=== PATIENT | female | born 1935 | race Caucasian/White ===

== ENCOUNTER 2022-12-05 19:30 | Inpatient (IN) ==
[2022-12-05] MEDS ORDERED: ONDANSETRON INJ 2 MG/ML 2 ML VIAL IV STA (19:42)
[2022-12-05] MEDS ORDERED: SODIUM CHLORIDE 0.9% 1000ML 1,000 ML IV ONE (20:39)
--- NOTE | 2022-12-05 20:41 | Emergency Department Note ---
Impression & Plan Abdominal pain, Acute hyponatremia, Acute pancreatitis ED Provider Note NAME: KRISTAN HAWTHORNE AGE: 87 SEX: F : 1935 ARRIVES VIA: Walk-In INFORMANT: Patient ED PROVIDER(S): Denver Chacon DO CHIEF COMPLAINT: Nausea and vomiting HPI: Patient is an 87-year-old female who presents to the ER for nausea and vomiting. She had 1 loose bowel movement today. Daughter notes she has been having nausea and vomiting since October. Recently waxing and waning and got better when it started back up this Friday. Once again got better on Friday or Friday and then picked back up again today. She denies any headache or change in vision. No chest pain or shortness of breath. No dysuria, urgency, or frequency. No other exacerbating or remitting factors. PAST MEDICAL HISTORY:See Below PAST SURGICAL HISTORY:See Below FAMILY HISTORY:See Below SOCIAL HISTORY:See Below HOME MEDICATIONS:See Below ALLERGIES:See Below VITALS:See Below PHYSICAL EXAMINATION: GENERAL: Sitting up in bed, alert, well appearing, well nourished, no distress, non-toxic EYE EXAM: normal conjunctiva. PERRL and EOM's grossly intact. OROPHARYNX: no exudate, no erythema, lips, buccal mucosa, and tongue normal and mucous membranes are moist NECK: supple, no nuchal rigidity, no adenopathy, non-tender LUNGS: Clear to auscultation. Normal chest wall mechanics HEART: no murmurs, S1 normal and S2 normal ABDOMEN: abdomen soft, non-tender, normo-active bowel sounds, no masses, no rebound or guarding. UPPER EXTREMITIES: upper extremities are grossly normal. LOWER EXTREMITIES: No pitting edema. NEURO EXAM: Normal sensorium, cranial nerves II-XII grossly intact, normal speech, no gross weakness of arms, no gross weakness of legs. MEDICAL DECISION MAKING: Patient is an 87-year-old female who presents ER for the listed complaint. IV was established blood work was obtained. External records reviewed. Labs show no significant leukocytosis or anemia. BMP with mild hyponatremia at 126. T. bili at 1.1. LFTs were unremarkable. Troponin negative. Lipase 260. UA was unremarkable. CT abdomen pelvis showed colitis. Patient was given IV fluids. She was updated bedside. Discussed with the hospitalist for further evaluation management treatment. Triage Nursing notes reviewed. Limited review of prior medical records performed Vital Signs: reviewed and remarkable for HTN Differential diagnosis: Differential diagnoses includes but is not limited to gastritis, peptic ulcer disease, GERD, gallbladder disease, pancreatitis, small bowel obstruction, appendicitis, diverticulitis, hernia, urinary tract infection, torsion, perforation, trauma, infectious. ER treatment provided: See below Diagnostics interpreted by me include EKG and cardiac monitoring as listed below: -Cardiac Monitoring: An order was placed for continuous cardiac monitoring. The monitor shows a rate of 80 with sinus rhythm. -ECG: Sinus rhythm rate 75 Left axis No PVCs QTc 439 -Laboratory studies:Interpreted by me as stated above in MDM and shown below. Imaging studies: Xrays: As interpreted by me:none CTs show: CT abdomen pelvis shows no obvious obstruction per my read CT abdomen pelvis per radiology was unremarkable Consultation(s): As described in MDM Procedures:none Critical Care: None Past Med/Surg History Social History Smoking Status: Never smoker Preferred Language: Polish Feels Safe at Home: Yes Allergies Allergies Allergy/AdvReac Type Severity Reaction Status Date / Time Penicillins Allergy Unknown Verified 12/05/22 22:29 Home Meds Home Medications Medication Instructions Recorded Confirmed alendronate 70 mg tablet 70 mg PO WK 12/05/22 12/05/22 aspirin 81 mg tablet,delayed 81 mg PO QAM 12/05/22 12/05/22 release calcium carbonate 600 mg-vitamin 1 tab PO QAM 12/05/22 12/05/22 D3 20 mcg (800 unit) tablet (Caltrate with Vitamin D3) cholecalciferol (vitamin D3) 50 50 mcg PO QAM 12/05/22 12/05/22 mcg (2,000 unit) tablet (Vitamin D3) donepezil 5 mg tablet 5 mg PO QDB 12/05/22 12/05/22 [id number]-[id number]-[id number] ac 400 1 tab PO QAM 12/05/22 12/05/22 mcg-calcium carb 500 mg-vit K1 20 mcg tablet rosuvastatin 10 mg tablet 10 mg PO QAM 12/05/22 12/05/22 triamterene 37.5 1 cap PO QAM 12/05/22 12/05/22 mg-hydrochlorothiazide 25 mg capsule Results & Data (ED) Vital Signs Vital Signs - 24 hr 12/05/22 19:38 12/05/22 21:00 12/05/22 21:41 Temperature 36.8 C Temperature Source Temporal Artery Scan Pulse Rate 93 H Pulse Rate [Apical] 66 71 Respiratory Rate 18 18 16 Respiratory Effort / Characteristics Non-Labored Non-Labored Spontaneous Respiratory Depth Normal Normal Blood Pressure 166/85 H Blood Pressure [Left Arm] 175/92 H 171/80 H Blood Pressure Mean 112 Blood Pressure Mean [Left Arm] 119 110 Pulse Oximetry 98 96 96 Oxygen Delivery Method Room Air Nasal Cannula Room Air Sepsis Recent Fever Within 48 Hours No Sepsis New/Unexplained Change in Mental Status No Sepsis Action Taken by Nursing No Action Required 12/05/22 21:45 Temperature Temperature Source Pulse Rate 66 Pulse Rate [Apical] Respiratory Rate Respiratory Effort / Characteristics Respiratory Depth Blood Pressure Blood Pressure [Left Arm] Blood Pressure Mean Blood Pressure Mean [Left Arm] Pulse Oximetry Oxygen Delivery Method Sepsis Recent Fever Within 48 Hours Sepsis New/Unexplained Change in Mental Status Sepsis Action Taken by Nursing Laboratory Data 12/05/22 19:56 12/05/22 19:56 Lab Results 12/05/22 12/05/22 12/05/22 Range/Units 19:56 19:56 22:26 WBC 9.41 (4.8-10.8) K/ul RBC 5.31 (4.20-5.40) M/uL Hgb 15.9 (12.0-16.0) g/dl Hct 44.6 (37.0-47.0) % MCV 84.0 (80.0-100.0) fL MCH 29.9 (25.0-34.0) pg MCHC 35.7 (32.0-36.0) g/dL RDW Std Deviation 39.0 (36.4-46.3) fL RDW Coeff of Darlyn 12.7 (11.5-14.5) % Plt Count 201 (130-400) K/uL MPV 9.2 L (9.4-12.4) fL Immature Gran % (Auto) 0.3 % Neut % (Auto) 58.1 % Lymph % (Auto) 34.2 % [place] % (Auto) 6.9 % Eos % (Auto) 0.4 % Baso % (Auto) 0.1 % Neut # (Auto) 5.46 (1.40-6.50) K/uL Lymph # (Auto) 3.22 (1.2-3.4) K/uL [place] # (Auto) 0.65 H (0.11-0.59) K/uL Eos # (Auto) 0.04 (0-0.50) K/uL Baso # (Auto) 0.01 (0-0.2) K/uL Immature Gran # (Auto) 0.03 (0.01-0.20) K/uL Sodium 126 L (136-145) mmol/L Potassium 3.6 (3.5-5.1) mmol/L Chloride 87 L (98-107) mmol/L Carbon Dioxide 27 (21-32) mmol/L Anion Gap 12 H (3-11) BUN 15 (6-23) mg/dl Creatinine 0.86 (0.6-1.2) mg/dl Est Cr Clr Drug Dosing 30.2 ml/min Est GFR ( Amer) 70.9 ml/min Est GFR (Non-Af Amer) 61.2 ml/min BUN/Creatinine Ratio 17.4 (10-20) Glucose 111 H (70-99(Fasting)) mg/dl Calcium 10.5 H (8.6-10.3) mg/dl Total Bilirubin 1.1 H (0.2-1.0) mg/dl AST 36 (13-39) U/L ALT 17 (7-52) U/L Alkaline Phosphatase 93 (34-104) U/L Troponin I High Sens 9.3 (0-14) pg/ml Total Protein 8.0 (6.0-8.3) gm/dl Albumin 4.9 (3.4-5.0) gm/dl Globulin 3.1 (2.5-4.0) gm/dl Albumin/Globulin Ratio 1.6 (0.9-2) Lipase 259 H (11-82) U/L Urine Color Yellow Urine Appearance Clear (Clear) Urine pH 7.5 (4.5-7.5) Ur Specific [place] 1.022 (1.000-1.030) Urine Protein Negative (Negative) Urine Glucose (UA) Negative (Negative) Urine Ketones Negative (Negative) Urine Blood Negative (Negative) Urine Nitrite Negative (Negative) Urine Bilirubin Negative (Negative) Urine Urobilinogen Negative (Negative) Ur Leukocyte Esterase 1+ H (Negative) Urine WBC (Auto) 1-5 (0-5) /hpf Urine RBC (Auto) 0-4 (0-4) /hpf U Hyaline Cast (Auto) 0 (0-5) /lpf U Epithel Cells (Auto) 0-5 (0-5) /lpf Urine Bacteria (Auto) Negative (Negative) Administered Medications Discontinued Medications Sodium Chloride (Nss 1000ml) 1,000 mls @ 999 mls/hr IV .Q1H1M ONE Stop: 12/05/22 21:39 Last Infusion: 12/05/22 21:56 Dose: 0 mls/hr Documented By: Admin: 12/05/22 20:48 Dose: 999 mls/hr Documented By: JOSIE Ioversol (Optiray 320 100ml) 90 ml IV ONCE ONE Stop: 12/05/22 21:27 Last Admin: 12/05/22 21:26 Dose: 90 ml Documented By: KWADWO Ondansetron HCl (Ondansetron Inj 2 Mg/Ml 2 Ml Vial) 4 mg IV NOW STA Stop: 12/05/22 19:43 Last Admin: 12/05/22 20:00 Dose: 4 mg Documented By: GENE Imaging Data Radiologist's Impression: Abdomen/Pelvis CT 12/05/22 20:39 Exam(s): CT ABDOMEN + PELVIS With Contrast IV Amt: 90ml EXAM: CT Abdomen and Pelvis With Intravenous Contrast CLINICAL HISTORY: Reason for exam: abd pain. TECHNIQUE: Axial computed tomography images of the abdomen and pelvis with intravenous contrast. CTDI is 6.74 mGy and DLP is 285.15 mGy-cm. Automated exposure control was utilized for the study. A dose lowering technique was utilized adhering to the principles of ALARA. CONTRAST: Patient received 90ml of IV contrast COMPARISON: Comparison made to prior CT scan of the abdomen and pelvis from December 01, 2022. FINDINGS: Lung bases: Unremarkable. No mass. No consolidation. ABDOMEN: Liver: Unremarkable. No mass. Gallbladder and bile ducts: Decompressed. Small calculi. No ductal dilation. Pancreas: Unremarkable. No mass. No ductal dilation. Spleen: Splenomegaly. Adrenals: Unremarkable. No mass. Kidneys and ureters: Left nephrolithiasis. No solid mass. No hydronephrosis. Stomach and bowel: There is thickening and edema of the distal esophageal and gastric wall. Surgical samuel in the right lower quadrant adjacent to the cecum. There is thickening and edema within the descending colon wall. PELVIS: Appendix: No findings to suggest acute appendicitis. Bladder: Unremarkable. No mass. Reproductive: Status post hysterectomy. ABDOMEN and PELVIS: Intraperitoneal space: Unremarkable. No free air. No significant fluid collection. Bones/joints: No acute fracture. No dislocation. Soft tissues: Unremarkable. Vasculature: Unremarkable. No abdominal aortic aneurysm. Lymph nodes: Unremarkable. No enlarged lymph nodes. IMPRESSION: Findings concerning for colitis of the descending colon, which may be infectious or inflammatory etiologies. Findings concerning for esophagitis and gastritis. Left nephrolithiasis. Splenomegaly. Cholelithiasis without evidence of cholecystitis. Status post hysterectomy. Electronically signed by: Radha Gonzalez MD 12/05/22 22:57 PM Discharge Plan Visit Data Chief Complaint: Dehydration Stated Complaint: NAUSEA, VOMIT, DEHYDRATING ED Provider: Denver Chacon Discharge Problem: Abdominal pain, Acute hyponatremia, Acute pancreatitis Forms Stand Alone Forms: [facility] [employer] Prescriptions Prescriptions: No Action donepezil 5 mg tablet 5 mg PO QDB alendronate 70 mg tablet 70 mg PO WK Rx Instructions: friday triamterene-hydrochlorothiazid 37.5-25 mg capsule 1 cap PO QAM rosuvastatin 10 mg tablet 10 mg PO QAM aspirin [Aspirin Low-Strength] 81 mg Tablet,Delayed Release (Dr/Ec) 81 mg PO QAM cholecalciferol (vitamin D3) [Vitamin D3] 50 mcg (2,000 unit) Tablet 50 mcg PO QAM One-A-Day Women's 50 Plus 400 mcg-500 mg calcium-20 mcg Tablet 1 tab PO QAM calcium carbonate-vitamin D3 [Caltrate with Vitamin D3] 600 mg-20 mcg (800 unit) Tablet 1 tab PO QAM Referrals Referrals: Maximino Andrade DO [Primary Care Provider] -
[2022-12-05 20:42] LABS: Basophils # (auto) 0.01 K/uL (0-0.2); Basophils % (auto) 0.1 %; Eosinophils # (auto) 0.04 K/uL (0-0.50); Eosinophils % (auto) 0.4 %; Hematocrit (blood only) 44.6 % (37.0-47.0); Hemoglobin 15.9 g/dl (12.0-16.0); Immature Granulocytes # (auto) 0.03 K/uL (0.01-0.20); Immature Granulocytes % (auto) 0.3 %; Lymphocytes # (auto) 3.22 K/uL (1.2-3.4); Lymphocytes % (auto) 34.2 %; Mean Corpuscular Hemoglobin 29.9 pg (25.0-34.0); Mean Corpuscular Hgb Conc 35.7 g/dL (32.0-36.0); Mean Platelet Volume 9.2 fL (9.4-12.4); Monocytes # (auto) 0.65 K/uL (0.11-0.59); Monocytes % (auto) 6.9 %; Neutrophils # (auto) 5.46 K/uL (1.40-6.50); Neutrophils % (auto) 58.1 %; Platelet Count 201 K/uL (130-400); RDW Coefficient of Variation 12.7 % (11.5-14.5); Red Blood Count 5.31 M/uL (4.20-5.40); White Blood Count 9.41 K/ul (4.8-10.8)
[2022-12-05 21:04] LABS: Albumin Globulin Ratio 1.6 (0.9-2); Albumin Level 4.9 gm/dl (3.4-5.0); BUN Creatinine Ratio 17.4 (10-20); Bilirubin,Total 1.1 mg/dl (0.2-1.0); Calcium 10.5 mg/dl (8.6-10.3); Creatinine Clr Calc Pharmacy 30.2 ml/min; Est GFR (African American) 70.9 ml/min; Est GFR (Non-African American) 61.2 ml/min; Globulin 3.1 gm/dl (2.5-4.0); Potassium 3.6 mmol/L (3.5-5.1)
[2022-12-05 21:10] LABS: Troponin I High Sensitivity 9.3 pg/ml (0-14)
[2022-12-05] MEDS ORDERED: OPTIRAY 320 100ml IV ONE (21:26)
[2022-12-05 22:45] LABS: Appearance Urine Clear (Clear); Bilirubin Urine Negative (Negative); Blood Urine Negative (Negative); Color Urine Yellow; Glucose Urine UA Negative (Negative); Ketones Urine Negative (Negative); Leukocyte Esterase Urine 1+ (Negative); Nitrite Urine Negative (Negative); Protein Urine Negative (Negative); Specific Gravity Urine 1.022 (1.000-1.030); Urobilinogen Urine Negative (Negative); pH Urine 7.5 (4.5-7.5)
[2022-12-05 22:55] LABS: Bacteria Urine Automated Negative (Negative); Cast Urine Automated 0 /lpf (0-5); Epithelial Cell Urine Auto 0-5 /lpf (0-5); RBC Urine Automated 0-4 /hpf (0-4)
--- NOTE | 2022-12-05 23:00 | History & Physical Report ---
Date of Service December 05, 2022 Assessment & Plan (1) Nausea & vomiting: Plan: 87-year-old female with past medical history significant for prediabetes, hyperlipidemia, hypertension, vitamin D deficiency, osteoporosis, benign paroxysmal vertigo, chronic midline low back pain, memory loss, who lives at home alone ambulates without support able to eat regular food and daughter lives close by was brought in by daughter because of ongoing nausea vomiting and weakness. Nausea an vomiting ongoing for some time now Diarrhea today Mild abdominal discomfort CT scan showing mild colitis and also gastritis and esophagitis Stool cultures ordered by ER we will follow the results IV fluids Keep n.p.o. for now IV Pepcid twice daily Empiric IV cipro and flagyl for now Consult GI in a.m. for further recommendation Hyponatremia Mostly from poor p.o. intake Getting fluids We will closely follow the labs and BMP every 6 hours We will avoid rapid correction We will follow urine osmolality serum was met in urine sodium levels If not progressing as intended we will consult nephrology Prediabetes We will follow HbA1c levels Hypertension We will hold the triamterene hydrochlorothiazide because of hyponatremia and poor oral intake IV hydralazine as needed for now Hyperlipidemia On statin Mild Hypercalcemia possibly from dehydration held calcium supplements will follow vitamin d levels. follow repeat labs DVT prophylaxis heparin subcu Disposition med/telemetry Full code (2) Hyponatremia: History of Present Illness Chief Complaint: Nausea and vomiting and diarrhea and weakness Primary Care Provider: Maximino Andrade DO 87-year-old female with past medical history significant for prediabetes, hy perlipidemia, hypertension, vitamin D deficiency, osteoporosis, benign paroxysmal vertigo, chronic midline low back pain, memory loss, who lives at home alone ambulates without support able to eat regular food and daughter lives close by was brought in by daughter because of ongoing nausea vomiting and weakness. Daughter states end of October she had stomach bug and had about 1 and half weeks of nausea vomiting and poor appetite and weakness and abdominal discomfort. Then her symptoms improved. But last Friday again she had nausea vomiting and not feeling well and she was in the ER, labs seemed okay except for mild hyponatremia. At that time CT scan was done which showed mild colitis possible infectious versus inflammatory. She improved with IV fluids and was discharged home. Daughter says she did fine for few days but again last 2 days again developed severe nausea and vomiting and vomited all the food she ate in last 2 days. Mild abdominal discomfort. She also had a explosive diarrhea today. Denies any blood in the vomitus or blood in the stools. No fevers. Hemodynamically stable. Denies any chest pain or shortness of breath. No headaches. Mild dizziness. No blurred visions or earache or runny nose or sore throat. No dysphagia or odynophagia. Normal bladder movements. No back pain. No neck pain. Currently ambulation not that great because of weakness. Past medical history as mentioned above Past surgical history appendectomy with hysterectomy, freeing of bowel ideations, tonsillectomy and adenoidectomy. Social history no smoking. Currently lives alone. Daughter lives close by Family history no family history on file Allergies Allergy/AdvReac Type Severity Reaction Status Date / Time Penicillins Allergy Unknown Verified 12/05/22 22:29 Home Medications Medication Instructions Recorded Confirmed Type alendronate 70 mg tablet 70 mg PO WK 12/05/22 12/05/22 History aspirin 81 mg tablet,delayed 81 mg PO QAM 12/05/22 12/05/22 History release calcium carbonate 600 mg-vitamin 1 tab PO QAM 12/05/22 12/05/22 History D3 20 mcg (800 unit) tablet (Caltrate with Vitamin D3) cholecalciferol (vitamin D3) 50 50 mcg PO QAM 12/05/22 12/05/22 History mcg (2,000 unit) tablet (Vitamin D3) donepezil 5 mg tablet 5 mg PO QDB 12/05/22 12/05/22 History [id number]-cie-[id number] ac 400 1 tab PO QAM 12/05/22 12/05/22 History mcg-calcium carb 500 mg-vit K1 20 mcg tablet rosuvastatin 10 mg tablet 10 mg PO QAM 12/05/22 12/05/22 History triamterene 37.5 1 cap PO QAM 12/05/22 12/05/22 History mg-hydrochlorothiazide 25 mg capsule Past Med/Surg History Social History Smoking Status: Never smoker Preferred Language: Latvian Feels Safe at Home: Yes Review of Systems Review of Systems: All systems reviewed & are unremarkable except as noted in Subjective Physical Exam Physical Exam: General- not in distress Head- atraumatic Eyes- PERRL. ENT- oropharynx clear Neck- supple, no JVD, Lungs- clear to auscultation no wheezing or crackles. Heart- regular rhythm; no murmur, no gallop. Abdomen- normal bowel sounds, soft, nontender, no distension Extremities- no pretibial edema, no erythema seen. Neuro- alert, oriented x 3; PERRL, no facial palsy; no dysarthria; obeys commands, moves extremities. Skin- warm & dry Results & Data Results & Data Vital Signs (Past 12 Hours) Vital Signs Temp Pulse Pulse Resp BP BP Pulse Ox 12/05/22 21:41 71 16 171/80 H 96 12/05/22 21:00 66 18 175/92 H 96 12/05/22 19:38 36.8 C 93 H 18 166/85 H 98 O2 Del Method 12/05/22 21:41 Room Air 12/05/22 21:00 Nasal Cannula 12/05/22 19:38 Room Air Diagnostic Findings Laboratory Results WBC 9.41 K/ul (4.8-10.8) 12/05/22 19:56 RBC 5.31 M/uL (4.20-5.40) 12/05/22 19:56 Hgb 15.9 g/dl (12.0-16.0) 12/05/22 19:56 Hct 44.6 % (37.0-47.0) 12/05/22 19:56 MCV 84.0 fL (80.0-100.0) 12/05/22 19:56 MCH 29.9 pg (25.0-34.0) 12/05/22 19:56 MCHC 35.7 g/dL (32.0-36.0) 12/05/22 19:56 RDW Std Deviation 39.0 fL (36.4-46.3) 12/05/22 19:56 RDW Coeff of Darlyn 12.7 % (11.5-14.5) 12/05/22 19:56 Plt Count 201 K/uL (130-400) 12/05/22 19:56 MPV 9.2 fL (9.4-12.4) L 12/05/22 19:56 Immature Gran % (Auto) 0.3 % 12/05/22 19:56 Neut % (Auto) 58.1 % 12/05/22 19:56 Lymph % (Auto) 34.2 % 12/05/22 19:56 [place] % (Auto) 6.9 % 12/05/22 19:56 Eos % (Auto) 0.4 % 12/05/22 19:56 Baso % (Auto) 0.1 % 12/05/22 19:56 Neut # (Auto) 5.46 K/uL (1.40-6.50) 12/05/22 19:56 Lymph # (Auto) 3.22 K/uL (1.2-3.4) 12/05/22 19:56 [place] # (Auto) 0.65 K/uL (0.11-0.59) H 12/05/22 19:56 Eos # (Auto) 0.04 K/uL (0-0.50) 12/05/22 19:56 Baso # (Auto) 0.01 K/uL (0-0.2) 12/05/22 19:56 Immature Gran # (Auto) 0.03 K/uL (0.01-0.20) 12/05/22 19:56 Sodium 126 mmol/L (136-145) L 12/05/22 19:56 Potassium 3.6 mmol/L (3.5-5.1) 12/05/22 19:56 Chloride 87 mmol/L (98-107) L 12/05/22 19:56 Carbon Dioxide 27 mmol/L (21-32) 12/05/22 19:56 Anion Gap 12 (3-11) H 12/05/22 19:56 BUN 15 mg/dl (6-23) 12/05/22 19:56 Creatinine 0.86 mg/dl (0.6-1.2) 12/05/22 19:56 Est Cr Clr Drug Dosing 30.2 ml/min 12/05/22 19:56 Est GFR ( Amer) 70.9 ml/min 12/05/22 19:56 Est GFR (Non-Af Amer) 61.2 ml/min 12/05/22 19:56 BUN/Creatinine Ratio 17.4 (10-20) 12/05/22 19:56 Glucose 111 mg/dl (70-99(Fasting)) H 12/05/22 19:56 Calcium 10.5 mg/dl (8.6-10.3) H 12/05/22 19:56 Total Bilirubin 1.1 mg/dl (0.2-1.0) H 12/05/22 19:56 AST 36 U/L (13-39) 12/05/22 19:56 ALT 17 U/L (7-52) 12/05/22 19:56 Alkaline Phosphatase 93 U/L (34-104) 12/05/22 19:56 Troponin I High Sens 9.3 pg/ml (0-14) 12/05/22 19:56 Total Protein 8.0 gm/dl (6.0-8.3) 12/05/22 19:56 Albumin 4.9 gm/dl (3.4-5.0) 12/05/22 19:56 Globulin 3.1 gm/dl (2.5-4.0) 12/05/22 19:56 Albumin/Globulin Ratio 1.6 (0.9-2) 12/05/22 19:56 Lipase 259 U/L (11-82) H 12/05/22 19:56 Urine Color Yellow 12/05/22 22:26 Urine Appearance Clear (Clear) 12/05/22 22:26 Urine pH 7.5 (4.5-7.5) 12/05/22 22:26 Ur Specific [place] 1.022 (1.000-1.030) 12/05/22 22:26 Urine Protein Negative (Negative) 12/05/22 22:26 Urine Glucose (UA) Negative (Negative) 12/05/22 22:26 Urine Ketones Negative (Negative) 12/05/22 22:26 Urine Blood Negative (Negative) 12/05/22 22:26 Urine Nitrite Negative (Negative) 12/05/22 22:26 Urine Bilirubin Negative (Negative) 12/05/22 22:26 Urine Urobilinogen Negative (Negative) 12/05/22 22:26 Ur Leukocyte Esterase 1+ (Negative) H 12/05/22 22:26 Urine WBC (Auto) 1-5 /hpf (0-5) 12/05/22 22:26 Urine RBC (Auto) 0-4 /hpf (0-4) 12/05/22 22:26 U Hyaline Cast (Auto) 0 /lpf (0-5) 12/05/22 22:26 U Epithel Cells (Auto) 0-5 /lpf (0-5) 12/05/22 22:26 Urine Bacteria (Auto) Negative (Negative) 12/05/22 22:26 Impressions Abdomen/Pelvis CT 12/05/22 20:39 Exam(s): CT ABDOMEN + PELVIS With Contrast IV Amt: 90ml EXAM: CT Abdomen and Pelvis With Intravenous Contrast CLINICAL HISTORY: Reason for exam: abd pain. TECHNIQUE: Axial computed tomography images of the abdomen and pelvis with intravenous contrast. CTDI is 6.74 mGy and DLP is 285.15 mGy-cm. Automated exposure control was utilized for the study. A dose lowering technique was utilized adhering to the principles of ALARA. CONTRAST: Patient received 90ml of IV contrast COMPARISON: Comparison made to prior CT scan of the abdomen and pelvis from December 01, 2022. FINDINGS: Lung bases: Unremarkable. No mass. No consolidation. ABDOMEN: Liver: Unremarkable. No mass. Gallbladder and bile ducts: Decompressed. Small calculi. No ductal dilation. Pancreas: Unremarkable. No mass. No ductal dilation. Spleen: Splenomegaly. Adrenals: Unremarkable. No mass. Kidneys and ureters: Left nephrolithiasis. No solid mass. No hydronephrosis. Stomach and bowel: There is thickening and edema of the distal esophageal and gastric wall. Surgical samuel in the right lower quadrant adjacent to the cecum. There is thickening and edema within the descending colon wall. PELVIS: Appendix: No findings to suggest acute appendicitis. Bladder: Unremarkable. No mass. Reproductive: Status post hysterectomy. ABDOMEN and PELVIS: Intraperitoneal space: Unremarkable. No free air. No significant fluid collection. Bones/joints: No acute fracture. No dislocation. Soft tissues: Unremarkable. Vasculature: Unremarkable. No abdominal aortic aneurysm. Lymph nodes: Unremarkable. No enlarged lymph nodes. IMPRESSION: Findings concerning for colitis of the descending colon, which may be infectious or inflammatory etiologies. Findings concerning for esophagitis and gastritis. Left nephrolithiasis. Splenomegaly. Cholelithiasis without evidence of cholecystitis. Status post hysterectomy. Electronically signed by: Radha Gonzalez MD 12/05/22 22:57 PM ECG Additional Comments: ECG normal sinus rhythm with rate of 75, left axis deviation. No acute ST seen Code Status & VTE Plan VTE Prophylaxis Plan VTE Prophylaxis will be ordered: Yes
[2022-12-06] MEDS ORDERED: ACETAMINOPHEN 325 MG TAB PO PRN (02:02)
[2022-12-06] MEDS ORDERED: NITROGLYCERIN SL 0.4 MG/TAB TAB SL PRN (02:02)
[2022-12-06] MEDS ORDERED: D5W AND NSS 1,000 ML IV SCH (02:02)
[2022-12-06] MEDS ORDERED: ONDANSETRON INJ 2 MG/ML 2 ML VIAL IV PRN (02:02)
[2022-12-06] MEDS ORDERED: FAMOTIDINE 20 MG in SYRINGE 3 ML IV ONE (02:30)
[2022-12-06] MEDS ORDERED: CIPROFLOXACIN / D5W 400 MG/200 ML BAG IV SCH (02:30)
[2022-12-06] MEDS: metroNIDAZOLE 500 MG/100 ML BAG IV SCH ×3 (02:58→17:34)
[2022-12-06 05:30] LABS: Basophils # (auto) 0.02 K/uL (0-0.2); Basophils % (auto) 0.3 %; Eosinophils # (auto) 0.07 K/uL (0-0.50); Hematocrit (blood only) 39.5 % (37.0-47.0); Hemoglobin 14.1 g/dl (12.0-16.0); Immature Granulocytes # (auto) 0.01 K/uL (0.01-0.20); Immature Granulocytes % (auto) 0.1 %; Lymphocytes # (auto) 3.11 K/uL (1.2-3.4); Lymphocytes % (auto) 43.3 %; Mean Corpuscular Hemoglobin 29.9 pg (25.0-34.0); Mean Corpuscular Hgb Conc 35.7 g/dL (32.0-36.0); Mean Corpuscular Volume 83.9 fL (80.0-100.0); Mean Platelet Volume 9.1 fL (9.4-12.4); Monocytes # (auto) 0.53 K/uL (0.11-0.59); Monocytes % (auto) 7.4 %; Neutrophils # (auto) 3.44 K/uL (1.40-6.50); Neutrophils % (auto) 47.9 %; Platelet Count 179 K/uL (130-400); RDW Standard Deviation 39.9 fL (36.4-46.3); Red Blood Count 4.71 M/uL (4.20-5.40); White Blood Count 7.18 K/ul (4.8-10.8)
[2022-12-06 06:15] LABS: BUN Creatinine Ratio 14.6 (10-20); Calcium 9.6 mg/dl (8.6-10.3); Creatinine Clr Calc Pharmacy 29.2 ml/min; Est GFR (Non-African American) 58.7 ml/min; Magnesium 1.7 mg/dl (1.7-2.4); Potassium 3.2 mmol/L (3.5-5.1)
[2022-12-06] MEDS ORDERED: CALCIUM 600MG + VIT D 400 IU TAB PO SCH (09:00)
[2022-12-06] MEDS ORDERED: CHOLECALCIFEROL 1,000 UNITS 25 MCG TAB PO SCH (09:00)
[2022-12-06] MEDS: NSS + 20MEQ KCL 20 MEQ/1,000 ML BAG IV SCH (09:42)
[2022-12-06] MEDS: HEPARIN SOD 5,000 UNIT/0.5 ML VIAL SQ SCH ×2 (10:45→21:29)
[2022-12-06] MEDS: DONEPEZIL HCL 5 MG TAB PO SCH (10:45)
[2022-12-06] MEDS: ROSUVASTATIN CALCIUM 10 MG TAB PO SCH (10:45)
[2022-12-06] MEDS: ASPIRIN 81 MG ECTAB PO SCH (10:45)
[2022-12-06] MEDS: CEROVITE ADV FORMULA TAB PO SCH (10:45)
--- NOTE | 2022-12-06 11:21 | Gastrointestinal Consultation ---
Date of Consultation December 06, 2022 Assessment & Plan (1) Nausea & vomiting: Seemingly resolved since admission (2) Abnormal CT of the abdomen: Distal esophageal, gastric and descending colon wall thickening. (3) Diarrhea: Seemingly resolved since admission. Plan - appreciate primary hospitalist management of fluid/electrolyte replacements. - slowly advance diet as tolerated. - I will call her daughter Corrie and explain the need for OP EGD/Colonoscopy. Our office will call her daughter to arrange. Supervising Physician Co-Signing Physician Notes I performed a history and physical examination of the patient today, including specifically on physical exam - soft abdomen. I have discussed the patient's management with the advanced practitioner. Please refer to the nurse practitioner's note for the documented findings and plan of care. Likely acute gastroenteritis. Already improved, no pain or diarrhea and tolerating diet. Plan for EGD/colonoscopy as OP. Recall GI if needed. History of Present Illness Reason for Consultation: Esophagitis/colitis Requesting Physician: Dr. Lemos Attending Physician: Vibha Villela MD History of Present Illness Ms. Erin Parikh is an 87 yr old female pt of Dr. Andrade w a hx of pre-DM, HLD, HTN, Vit D deficiency, osteoporosis, veritigo, low back pain, memory loss. She began with intermittent N/V 3 weeks ago. Diarrhea also began yesterday. She was brought to the ED yesterday for these symptoms and weakness. Labs on arrival w hyponatremia (126->132) and hypokalemia (3.1). CT w lower esophageal and gastric wall thickening as well as descending colon wall thickening. The pt is awake, alert, able to tell me that this is [place] and it is November that she lives alone with her cat and dog and that her daughter is an EMT, but the pt isn't really able to provide a lot more detail about the details regarding her illness. She does she that she feels well now. I noticed that stool studies are ordered, but not collected and her nurse tells me that she hasn't had a BM since arrival on the 3rd floor. She has drank a clear liquid diet w/o recurrence of the N/V. Allergies Allergy/AdvReac Type Severity Reaction Status Date / Time Penicillins Allergy Unknown Verified 12/05/22 22:29 Home Medications Medication Instructions Recorded Confirmed Type alendronate 70 mg tablet 70 mg PO WK 12/05/22 12/05/22 History aspirin 81 mg tablet,delayed 81 mg PO QAM 12/05/22 12/05/22 History release calcium carbonate 600 mg-vitamin 1 tab PO QAM 12/05/22 12/05/22 History D3 20 mcg (800 unit) tablet (Caltrate with Vitamin D3) cholecalciferol (vitamin D3) 50 50 mcg PO QAM 12/05/22 12/05/22 History mcg (2,000 unit) tablet (Vitamin D3) donepezil 5 mg tablet 5 mg PO QDB 12/05/22 12/05/22 History onhmxwye-xfk-azoal ac 400 1 tab PO QAM 12/05/22 12/05/22 History mcg-calcium carb 500 mg-vit K1 20 mcg tablet rosuvastatin 10 mg tablet 10 mg PO QAM 12/05/22 12/05/22 History triamterene 37.5 1 cap PO QAM 12/05/22 12/05/22 History mg-hydrochlorothiazide 25 mg capsule Patient History Social History Smoking Status: Never smoker Hx Alcohol Use: No Hx Substance Use: No Preferred Language: Luxembourger Communication Ability: Effective Investment Manager Required: No Beliefs That Will Affect Care: Hinduism and Spiritual Current Living Situation: Alone Other Information That Helps Us Care for You: No Feels Safe at Home: Yes Safety Concerns: Feels Safe At This Time Assistive Devices: None Review of Systems Review of Systems: ROS: Gen: + weakness and weight loss. No fevers. Eyes: No eye redness, or pain, no recent vision changes Resp: No SOB, no cough Cardio: No palpitations/irregular beats, no chest pain GI: As per HPI, otherwise (-). : Denies pain on urination Skin: No jaundice, itching or new rashes Physical Exam Constitutional: WD/WN, vitals as above well developed, well nourished and + thin Eyes: PERRL, conjunctivae normal, anicteric sclerae ENMT: external ear and nose normal, oropharynx normal Neck: trachea midline, no thyromegaly Respiratory: normal respiratory effort, lungs clear to auscultation Cardiovascular: RRR, no murmur, no edema Gastrointestinal (Abdomen): normal bowel sounds, soft, nontender, no hepatosplenomegaly Musculoskeletal: no cyanosis or clubbing, extremities motor strength 5/5 Skin: no rashes, warm and dry Neurologic: PERRL, EOMI, accommodation nl, no face palsy, no dysarthria Psychiatric: Orientation: alert, oriented to person, oriented to place and cooperative Lymphatic: no cervical or axillary lymphadenopathy Results & Data Vital Signs (Past 12 Hours) Vital Signs Temp Pulse Pulse Resp BP BP Pulse Ox 12/06/22 10:03 77 12/06/22 08:00 36.5 C 83 18 150/85 H 99 12/06/22 04:12 67 18 176/85 H 98 12/06/22 02:36 60 12/06/22 01:30 144/75 H 96 12/06/22 01:00 154/73 H 97 12/05/22 23:40 65 16 167/82 H 97 O2 Del Method 12/06/22 10:03 12/06/22 08:00 Room Air 12/06/22 04:12 Room Air 12/06/22 02:36 12/06/22 01:30 12/06/22 01:00 12/05/22 23:40 Room Air Laboratory Results WBC7.18, Hb 14, CHt 39, Plts 179, Na 130, K 3.2, Cl 93, CO2 30, BUN 13, Cr 0.89, glucose 120. Diagnostic Findings CTAP w IV contrast 12/05/22: Findings concerning for colitis of the descending colon, which may be infectious or inflammatory etiologies. Findings concerning for esophagitis and gastritis. Left nephrolithiasis. Splenomegaly. Cholelithiasis without evidence of cholecystitis.
[2022-12-06 11:44] LABS: BUN Creatinine Ratio 12.6 (10-20); Calcium 9.4 mg/dl (8.6-10.3); Creatinine Clr Calc Pharmacy 29.8 ml/min; Est GFR (African American) 69.9 ml/min; Est GFR (Non-African American) 60.3 ml/min; Potassium 3.1 mmol/L (3.5-5.1)
--- NOTE | 2022-12-06 12:09 | Hospitalist Progress Note ---
Date of Service December 06, 2022 Assessment & Plan (1) Nausea & vomiting: Plan: 87-year-old female with past medical history significant for prediabetes, hyperlipidemia, hypertension, vitamin D deficiency, osteoporosis, benign paroxysmal vertigo, chronic midline low back pain, memory loss, who lives at home alone ambulates without support able to eat regular food and daughter lives close by was brought in by daughter because of ongoing nausea vomiting and weakness. Nausea an vomiting ongoing for some time now Diarrhea today Mild abdominal discomfort CT scan showing mild colitis and also gastritis and esophagitis-CT scan of the abdomen pelvis on 13 of this month showed mild colitis as well Stool cultures ordered-results pending IV Pepcid twice daily Empiric IV cipro and flagyl for now Appreciate GI input and recommendation-we will have outpatient EGD and colonoscopy She has been feeling much better We will continue with IV antibiotic for today and likely discharge tomorrow on oral antibiotic to finish the course of 14 days in total Hyponatremia Mostly from poor p.o. intake Has been getting normal saline with potassium intravenously Sodium is 132 today we will monitor Urine sodium level is low and osmolarity is pending Prediabetes We will follow HbA1c levels-we will check it tomorrow Hypertension We will hold the triamterene hydrochlorothiazide because of hyponatremia and poor oral intake IV hydralazine as needed for now Blood pressure remains elevated We will add amlodipine 5 mg daily Hyperlipidemia On statin Mild Hypercalcemia possibly from dehydration held calcium supplements will follow vitamin d levels.-Elevated and will stop vitamin D supplement DVT prophylaxis heparin subcu Disposition med/telemetry Full code Likely discharge tomorrow (2) Hyponatremia: Admission and Anticipated Discharge Date Admission Date: December 05, 2022 Subjective 12/06/2022 The patient was seen and examined in medical telemetry unit She was admitted with nausea vomiting and abdominal discomfort which has been going on for the last few days She has loss of appetite but does not have any fever and or chills and denies any problem with urination or bowel habit Has been feeling much better since admission Review of Systems Review of Systems: All systems reviewed and are unremarkable except as noted below Physical Exam Physical Exam: Lying in bed comfortably Constitutional: + ill appearing and average body habitus Eyes: PERRL, conjunctivae normal, anicteric sclerae ENMT: external ear and nose normal, oropharynx normal Neck: trachea midline, no thyromegaly Respiratory: no respiratory distress Auscultation: lungs clear to auscultation bilaterally Cardiovascular: Rate/Rhythm: regular rate and regular rhythm; not tachycardic Heart Sounds: normal S1, normal S2 and + murmur Extremities: no edema Gastrointestinal (Abdomen): Inspection/Auscultation: normal bowel sounds; abdomen not distended Percussion/Palpation: + abdomen tender (Mildly tender lower quadrants) and abdomen soft Musculoskeletal: No acute arthritis involving any joint Neurologic: normal touch/pain/proprioception and moves all extremities; no focal motor deficits Psychiatric: A+Ox3, euthymic affect Lymphatic: no cervical or axillary lymphadenopathy Results & Data Results & Data Vital Signs (Past 12 Hours) Vital Signs Temp Pulse Pulse Resp BP BP Pulse Ox 12/06/22 11:52 36.4 C L 63 16 186/92 H 97 12/06/22 10:03 77 12/06/22 08:00 36.5 C 83 18 150/85 H 99 12/06/22 04:12 67 18 176/85 H 98 12/06/22 02:36 60 12/06/22 01:30 144/75 H 96 12/06/22 01:00 154/73 H 97 O2 Del Method 12/06/22 11:52 Room Air 12/06/22 10:03 12/06/22 08:00 Room Air 12/06/22 04:12 Room Air 12/06/22 02:36 12/06/22 01:30 12/06/22 01:00 Laboratory Results Short CBC 12/05/22 12/06/22 Range/Units 19:56 05:04 WBC 9.41 7.18 (4.8-10.8) K/ul Hgb 15.9 14.1 (12.0-16.0) g/dl Hct 44.6 39.5 (37.0-47.0) % Plt Count 201 179 (130-400) K/uL BMP 12/05/22 12/06/22 12/06/22 19:56 05:04 11:01 Sodium 126 L 130 L 132 L Potassium 3.6 3.2 L 3.1 L Chloride 87 L 93 L 95 L Carbon Dioxide 27 30 30 BUN 15 13 11 Creatinine 0.86 0.89 0.87 Glucose 111 H 120 H 141 H Calcium 10.5 H 9.6 9.4 Liver Function 12/05/22 Range/Units 19:56 Total Bilirubin 1.1 H (0.2-1.0) mg/dl AST 36 (13-39) U/L ALT 17 (7-52) U/L Alkaline Phosphatase 93 (34-104) U/L Albumin 4.9 (3.4-5.0) gm/dl Urine 12/05/22 Range/Units 22:26 Urine Color Yellow Urine Appearance Clear (Clear) Urine pH 7.5 (4.5-7.5) Ur Specific Duncan 1.022 (1.000-1.030) Urine Protein Negative (Negative) Urine Glucose (UA) Negative (Negative) Medications Administered Current Inpatient Medications Acetaminophen (Acetaminophen 325 Mg Tab) 650 mg PO Q4H PRN PRN Reason: Pain or Fever Stop: 01/05/23 02:01 Amlodipine Besylate (Amlodipine Besylate 5 Mg Tab) [facility] [place] Stop: 01/05/23 11:59 Aspirin (Aspirin 81 Mg Ectab) [facility] [place] Stop: 01/05/23 08:59 Last Admin: 12/06/22 10:45 Dose: 81 mg Donepezil HCl (Donepezil Hcl 5 Mg Tab) 5 mg PO QDB [facility] Stop: 01/05/23 07:29 Last Admin: 12/06/22 10:45 Dose: 5 mg Heparin Sodium (Porcine) (Heparin Sod 5,000 Unit/0.5 Ml Vial) 5,000 units SQ Q12 [facility] Stop: 01/05/23 08:59 Last Admin: 12/06/22 10:45 Dose: 5,000 units Famotidine 20 mg/ Syringe 5 mls @ 2.5 mls/min IV Q24H [facility] Stop: 01/05/23 20:59 Metronidazole (Flagyl) 500 mg in 100 mls @ 100 mls/hr IV Q8H [facility]; Protocol Stop: 12/16/22 02:29 Last Admin: 12/06/22 10:44 Dose: 100 mls/hr Potassium Chloride/Sodium Chloride (Normal Saline W/20 Meq Kcl) 20 meq in 1,000 mls @ 80 mls/hr IV .[id number] [facility]; Protocol Stop: 12/07/22 09:59 Last Admin: 12/06/22 09:42 Dose: 80 mls/hr Ciprofloxacin (Cipro / D5w) 400 mg in 200 mls @ 100 mls/hr IV Q24H [facility]; Protocol Stop: 12/16/22 20:59 Multivitamins/Minerals (Cerovite Adv Formula Tab) 1 tab PO QAM [facility] Stop: 01/05/23 08:59 Last Admin: 12/06/22 10:45 Dose: 1 tab Nitroglycerin (Nitroglycerin Sl 0.4 Mg/Tab Tab) 0.4 mg SL Q5M PRN PRN Reason: Chest Pain Stop: 01/05/23 02:01 Ondansetron HCl (Ondansetron Inj 2 Mg/Ml 2 Ml Vial) 4 mg IV Q6H PRN PRN Reason: Nausea Stop: 01/05/23 02:01 Rosuvastatin Calcium (Rosuvastatin Calcium 10 Mg Tab) 10 mg PO QAM [facility] Stop: 01/05/23 08:59 Last Admin: 12/06/22 10:45 Dose: 10 mg
[2022-12-06] MEDS: amLODIPine BESYLATE 5 MG TAB PO SCH (12:28)
--- NOTE | 2022-12-06 12:40 | Electrocardiogram Report ---
Test Reason : Blood Pressure : / mmHG Vent. Rate : 075 BPM Atrial Rate : 075 BPM P-R Int : 138 ms QRS Dur : 072 ms QT Int : 394 ms P-R-T Axes : 070 -38 073 degrees QTc Int : 439 ms Normal sinus rhythm Left axis deviation Abnormal ECG When compared with ECG of 01-DEC-2022 22:04, T wave inversion no longer evident in Inferior leads Confirmed by Michael Manley ([id number]) on 12/06/2022 12:40:18 PM Referred By: REFERRED SELF Confirmed By:Michael Manley
--- NOTE | 2022-12-06 15:26 | Communication Note ---
Date of Service: December 06, 2022 I spoke with her daughter Corrie Elam who is an EMT. I explained the plan for her mother: advance diet, when improved can be discharged and get EGD/Colonoscopy as an OP. Corrie says that the main concern is that her mother does not have an appetite, that she has lost about 10lbs since mild October. Corrie is concerned that she gets better w IV fluids (this visit and prior ED visit on 12/01/22). Corrie is worried that her mother can't sustain her strength w/o IV fluids and electrolyte replacement because she isn't eating. Will talk w Dr. Villela about possibly starting a medicine such as Remeron which would likely increase her appetite. Reassured the daughter that if the pt doesn't eat and continue to improve during this admission, then we would con casino floor supervisor IP EGD/Colonoscopy next week.
[2022-12-06 18:05] LABS: BUN Creatinine Ratio 12.5 (10-20); Calcium 9.6 mg/dl (8.6-10.3); Creatinine Clr Calc Pharmacy 32.4 ml/min; Est GFR (African American) 77.4 ml/min; Est GFR (Non-African American) 66.8 ml/min
[2022-12-06] MEDS: CIPROFLOXACIN / D5W 400 MG/200 ML BAG IV SCH (21:28)
[2022-12-06] MEDS: FAMOTIDINE 20 MG in SYRINGE 3 ML IV SCH (21:28)
[2022-12-06 23:46] LABS: BUN Creatinine Ratio 14.1 (10-20); Creatinine Clr Calc Pharmacy 33.3 ml/min; Est GFR (African American) 79.8 ml/min; Est GFR (Non-African American) 68.8 ml/min
[2022-12-07] MEDS: NSS + 20MEQ KCL 20 MEQ/1,000 ML BAG IV SCH (00:05)
[2022-12-07] MEDS: metroNIDAZOLE 500 MG/100 ML BAG IV SCH ×3 (01:21→18:28)
[2022-12-07 07:08] LABS: BUN Creatinine Ratio 11.1 (10-20); Calcium 9.1 mg/dl (8.6-10.3); Est GFR (African American) 87.9 ml/min; Est GFR (Non-African American) 75.8 ml/min; Magnesium 1.6 mg/dl (1.7-2.4); Potassium 3.2 mmol/L (3.5-5.1)
[2022-12-07 07:31] LABS: Hematocrit (blood only) 36.6 % (37.0-47.0); Hemoglobin 12.9 g/dl (12.0-16.0); Mean Corpuscular Hemoglobin 29.5 pg (25.0-34.0); Mean Corpuscular Hgb Conc 35.2 g/dL (32.0-36.0); Mean Corpuscular Volume 83.8 fL (80.0-100.0); Mean Platelet Volume 9.7 fL (9.4-12.4); Platelet Count 182 K/uL (130-400); RDW Coefficient of Variation 13.1 % (11.5-14.5); Red Blood Count 4.37 M/uL (4.20-5.40); White Blood Count 8.33 K/ul (4.8-10.8)
[2022-12-07] MEDS ORDERED: POTASSIUM CHLORIDE CRTAB 20 MEQ TABCR PO STA (07:49)
[2022-12-07 08:07] LABS: Estimated Average Glucose 140 mg/dl; Hemoglobin A1C 6.5 % (4.5-5.6)
[2022-12-07 08:31] LABS: Basophils # (auto) 0.06 K/uL (0-0.2); Basophils % (auto) 0.7 %; Eosinophils # (auto) 0.06 K/uL (0-0.50); Eosinophils % (auto) 0.7 %; Immature Granulocytes # (auto) 0.02 K/uL (0.01-0.20); Immature Granulocytes % (auto) 0.2 %; Lymphocytes # (auto) 4.26 K/uL (1.2-3.4); Lymphocytes % (auto) 51.1 %; Monocytes # (auto) 0.67 K/uL (0.11-0.59); Neutrophils # (auto) 3.26 K/uL (1.40-6.50); Neutrophils % (auto) 39.3 %; RBC Morphology Unremarkable
[2022-12-07] MEDS: DONEPEZIL HCL 5 MG TAB PO SCH (08:52)
[2022-12-07] MEDS: CEROVITE ADV FORMULA TAB PO SCH (08:52)
[2022-12-07] MEDS: HEPARIN SOD 5,000 UNIT/0.5 ML VIAL SQ SCH ×2 (08:52→21:34)
[2022-12-07] MEDS: ROSUVASTATIN CALCIUM 10 MG TAB PO SCH (08:52)
[2022-12-07] MEDS: ASPIRIN 81 MG ECTAB PO SCH (08:52)
[2022-12-07] MEDS: amLODIPine BESYLATE 5 MG TAB PO SCH (08:52)
--- NOTE | 2022-12-07 12:43 | Hospitalist Progress Note ---
Date of Service December 07, 2022 Assessment & Plan (1) Nausea & vomiting: Plan: 87-year-old female with past medical history significant for prediabetes, hyperlipidemia, hypertension, vitamin D deficiency, osteoporosis, benign paroxysmal vertigo, chronic midline low back pain, memory loss, who lives at home alone ambulates without support able to eat regular food and daughter lives close by was brought in by daughter because of ongoing nausea vomiting and weakness. Nausea an vomiting ongoing for some time now Diarrhea today Mild abdominal discomfort CT scan showing mild colitis and also gastritis and esophagitis-CT scan of the abdomen pelvis on 13 of this month showed mild colitis as well Stool cultures ordered-results pending IV Pepcid twice daily Empiric IV cipro and flagyl for now Appreciate GI input and recommendation-we will have outpatient EGD and colonoscopy She has been feeling much better We will continue with IV antibiotic for today and likely discharge tomorrow on oral antibiotic to finish the course of 14 days in total Discussed with daughter in detail even though the patient is getting better day by day she wants to have EGD and colonoscopy done while she is in the hospital GI is aware and the patient is tolerating usual food without any symptoms Acute confusion Noted to be last night and as well as early this morning Daughter says that confusion is worse Reassured that it could be secondary to hospital delirium and the infection has been contributing We will observe and go from there She will have an outpatient appointment with the neurologist for evaluation of dementia Hyponatremia Mostly from poor p.o. intake Has been getting normal saline with potassium intravenously Sodium is 132 today we will monitor Urine sodium level is low and osmolarity is pending Sodium level is normal at 137 and potassium is minimally low at 3.2 which was supplemented Prediabetes We will follow HbA1c levels-we will check it tomorrow Hypertension We will hold the triamterene hydrochlorothiazide because of hyponatremia and poor oral intake IV hydralazine as needed for now Blood pressure remains elevated We will add amlodipine 5 mg daily Hyperlipidemia On statin Mild Hypercalcemia possibly from dehydration held calcium supplements will follow vitamin d levels.-Elevated and will stop vitamin D supplement DVT prophylaxis heparin subcu Disposition med/telemetry Full code Likely discharge tomorrow (2) Hyponatremia: Admission and Anticipated Discharge Date Admission Date: December 05, 2022 Subjective 12/06/2022 The patient was seen and examined in medical telemetry unit She was admitted with nausea vomiting and abdominal discomfort which has been going on for the last few days She has loss of appetite but does not have any fever and or chills and denies any problem with urination or bowel habit Has been feeling much better since admission 12/07/2022 The patient was seen and examined in medical telemetry unit She has been feeling much better and wants to go home Noted to be confused last night and also this morning with nurse daughter came up to see her Denies any fever and or chills, any abdominal pain nausea or vomiting Review of Systems Review of Systems: All systems reviewed and are unremarkable except as noted below Physical Exam Physical Exam: Lying in bed comfortably Constitutional: + ill appearing and average body habitus Eyes: PERRL, conjunctivae normal, anicteric sclerae ENMT: external ear and nose normal, oropharynx normal Neck: trachea midline, no thyromegaly Respiratory: no respiratory distress Auscultation: lungs clear to auscultation bilaterally Cardiovascular: Rate/Rhythm: regular rate and regular rhythm; not tachycardic Heart Sounds: normal S1, normal S2 and + murmur Extremities: no edema Gastrointestinal (Abdomen): Inspection/Auscultation: normal bowel sounds; abdomen not distended Percussion/Palpation: + abdomen tender (Mildly tender lower quadrants) and abdomen soft Musculoskeletal: No acute arthritis involving any of the joint Neurologic: normal touch/pain/proprioception and moves all extremities; no focal motor deficits Psychiatric: A+Ox3, euthymic affect Lymphatic: no cervical or axillary lymphadenopathy Results & Data Results & Data Vital Signs (Past 12 Hours) Vital Signs Temp Pulse Pulse Resp BP Pulse Ox O2 Del Method 12/07/22 11:31 36.3 C L 76 20 135/69 97 Room Air 12/07/22 08:32 36.5 C 106 H 20 179/101 H 98 Room Air 12/07/22 07:25 71 12/07/22 04:20 36.3 C L 69 18 148/72 H 95 Room Air 12/07/22 00:38 74 Laboratory Results Short CBC 12/07/22 Range/Units 06:17 WBC 8.33 (4.8-10.8) K/ul Hgb 12.9 (12.0-16.0) g/dl Hct 36.6 L (37.0-47.0) % Plt Count 182 (130-400) K/uL [facility] 12/06/22 12/06/22 12/07/22 17:04 23:06 06:17 Sodium 133 L 134 L 137 Potassium 3.0 L 3.0 L 3.2 L Chloride 95 L 99 103 Carbon Dioxide 29 27 28 BUN 10 11 8 Creatinine 0.80 0.78 0.72 Glucose 99 133 H 95 Calcium 9.6 9.0 9.1 Medications Administered Current Inpatient Medications Acetaminophen (Acetaminophen 325 Mg Tab) 650 mg PO Q4H PRN PRN Reason: Pain or Fever Stop: 01/05/23 02:01 Amlodipine Besylate (Amlodipine Besylate 5 Mg Tab) [facility] [place]: 01/05/23 11:59 Last Admin: 12/07/22 08:52 Dose: 5 mg Aspirin (Aspirin 81 Mg Ectab) 81 mg PO QAM [facility] Stop: 01/05/23 08:59 Last Admin: 12/07/22 08:52 Dose: 81 mg Donepezil HCl (Donepezil Hcl 5 Mg Tab) 5 mg PO QDB [facility] Stop: 01/05/23 07:29 Last Admin: 12/07/22 08:52 Dose: 5 mg Heparin Sodium (Porcine) (Heparin Sod 5,000 Unit/0.5 Ml Vial) 5,000 units SQ Q12 [facility] Stop: 01/05/23 08:59 Last Admin: 12/07/22 08:52 Dose: 5,000 units Famotidine 20 mg/ Syringe 5 mls @ 2.5 mls/min IV Q24H [facility] Stop: 01/05/23 20:59 Last Admin: 12/06/22 21:28 Dose: 2.5 mls/min Metronidazole (Flagyl) 500 mg in 100 mls @ 100 mls/hr IV Q8H [facility]; Protocol Stop: 12/16/22 02:29 Last Infusion: 12/07/22 11:42 Dose: Infused Ciprofloxacin (Cipro / D5w) 400 mg in 200 mls @ 100 mls/hr IV Q24H [facility]; Protocol Stop: 12/16/22 20:59 Last Infusion: 12/07/22 00:05 Dose: Infused Multivitamins/Minerals (Cerovite Adv Formula Tab) 1 tab PO QAM [facility] Stop: 01/05/23 08:59 Last Admin: 12/07/22 08:52 Dose: 1 tab Nitroglycerin (Nitroglycerin Sl 0.4 Mg/Tab Tab) 0.4 mg SL Q5M PRN PRN Reason: Chest Pain Stop: 01/05/23 02:01 Ondansetron HCl (Ondansetron Inj 2 Mg/Ml 2 Ml Vial) 4 mg IV Q6H PRN PRN Reason: Nausea Stop: 01/05/23 02:01 Rosuvastatin Calcium (Rosuvastatin Calcium 10 Mg Tab) [facility] [place] Stop: 01/05/23 08:59 Last Admin: 12/07/22 08:52 Dose: 10 mg
[2022-12-07] MEDS ORDERED: OLANZapine 10 MG/2.1 ML SDV IM STA ×2 (19:32→21:36)
[2022-12-07] MEDS: CIPROFLOXACIN / D5W 400 MG/200 ML BAG IV SCH (21:32)
[2022-12-07] MEDS: FAMOTIDINE 20 MG in SYRINGE 3 ML IV SCH (21:34)
[2022-12-07] MEDS ORDERED: OLANZapine 10 MG/2.1 ML SDV IM ONE (21:39)
[2022-12-08] MEDS: metroNIDAZOLE 500 MG/100 ML BAG IV SCH ×3 (02:28→18:55)
[2022-12-08] MEDS: ASPIRIN 81 MG ECTAB PO SCH (11:16)
[2022-12-08] MEDS: CEROVITE ADV FORMULA TAB PO SCH (11:16)
[2022-12-08] MEDS: DONEPEZIL HCL 5 MG TAB PO SCH (11:16)
[2022-12-08] MEDS: ROSUVASTATIN CALCIUM 10 MG TAB PO SCH (11:16)
[2022-12-08] MEDS: HEPARIN SOD 5,000 UNIT/0.5 ML VIAL SQ SCH ×2 (11:17→21:47)
[2022-12-08] MEDS: amLODIPine BESYLATE 5 MG TAB PO SCH (11:18)
--- NOTE | 2022-12-08 11:28 | CT Scan Report ---
HEAD CT NONCONTRAST CT DOSE: 580.53 mGy.cm HISTORY: Confusion. TECHNIQUE: Multiaxial CT images of the head were performed without the use of intravenous contrast. A utomated exposure control was utilized for this study. A dose lowering technique was utilized adheri ng to the principles of ALARA. Comparison: Brain MRI 08/08/2022. Findings: There is a small retention cyst within the right maxillary sinus. The mastoid air cells are clear. The calvarium and skull base are intact. There is no mass, hematoma, midline shift, acute inf arct. White matter hypodensity is nonspecific but suggestive of microvascular ischemic change. The ve ntricles and sulci demonstrate mild age-related involutional changes. Impression: No acute intracranial abnormality. Atrophy and microvascular ischemic changes. ACT 112: Negative or not required by law. Electronically signed by: Abundio Chung M.D. 12/08/2022 11:26 AM
--- NOTE | 2022-12-08 12:47 | Hospitalist Progress Note ---
Date of Service December 08, 2022 Assessment & Plan (1) Nausea & vomiting: Plan: 87-year-old female with past medical history significant for prediabetes, hyperlipidemia, hypertension, vitamin D deficiency, osteoporosis, benign paroxysmal vertigo, chronic midline low back pain, memory loss, who lives at home alone ambulates without support able to eat regular food and daughter lives close by was brought in by daughter because of ongoing nausea vomiting and weakness. Nausea an vomiting ongoing for some time now Diarrhea today Mild abdominal discomfort CT scan showing mild colitis and also gastritis and esophagitis-CT scan of the abdomen pelvis on 13 of this month showed mild colitis as well Stool cultures ordered-results pending IV Pepcid twice daily Empiric IV cipro and flagyl for now Appreciate GI input and recommendation-we will have outpatient EGD and colonoscopy She has been feeling much better We will continue with IV antibiotic for today and likely discharge tomorrow on oral antibiotic to finish the course of 14 days in total Discussed with daughter in detail even though the patient is getting better day by day she wants to have EGD and colonoscopy done while she is in the hospital GI is aware and the patient is tolerating usual food without any symptoms No more abdominal symptoms-we will keep her n.p.o. for possible EGD tomorrow Likely to go for EGD and colonoscopy while she is in the hospital Acute confusion Noted to be last night and as well as early this morning Daughter says that confusion is worse Reassured that it could be secondary to hospital delirium and the infection has been contributing We will observe and go from there She will have an outpatient appointment with the neurologist for evaluation of dementia Increasing confusion last night but resolved this morning CT scan of the head without contrast did show microvascular changes as before but no acute stroke and or bleeding Hyponatremia Mostly from poor p.o. intake Has been getting normal saline with potassium intravenously Sodium is 132 today we will monitor Urine sodium level is low and osmolarity is pending Sodium level is normal at 137 and potassium is minimally low at 3.2 which was supplemented Prediabetes We will follow HbA1c levels-we will check it tomorrow-6.5 Hypertension We will hold the triamterene hydrochlorothiazide because of hyponatremia and poor oral intake IV hydralazine as needed for now Blood pressure remains elevated We will add amlodipine 5 mg daily Blood pressure is controlled Hyperlipidemia On statin Mild Hypercalcemia possibly from dehydration held calcium supplements will follow vitamin d levels.-Elevated and will stop vitamin D supplement DVT prophylaxis heparin subcu Disposition med/telemetry Full code Likely priti have EGD/colonoscopy whilst in the hospital (2) Hyponatremia: Admission and Anticipated Discharge Date Admission Date: December 05, 2022 Subjective 12/06/2022 The patient was seen and examined in medical telemetry unit She was admitted with nausea vomiting and abdominal discomfort which has been going on for the last few days She has loss of appetite but does not have any fever and or chills and denies any problem with urination or bowel habit Has been feeling much better since admission 12/07/2022 The patient was seen and examined in medical telemetry unit She has been feeling much better and wants to go home Noted to be confused last night and also this morning with nurse daughter came up to see her Denies any fever and or chills, any abdominal pain nausea or vomiting 12/08/2022 The patient was seen and examined in medical telemetry unit in presence of the daughter She required 1 dose of IM Zyprexa last night because of increasing confusion and agitation Has been fine this morning and denies any symptoms Review of Systems Review of Systems: All systems reviewed and are unremarkable except as noted below Physical Exam Physical Exam: Lying in bed comfortably Constitutional: + ill appearing and average body habitus Eyes: PERRL, conjunctivae normal, anicteric sclerae ENMT: external ear and nose normal, oropharynx normal Neck: trachea midline, no thyromegaly Respiratory: no respiratory distress Auscultation: lungs clear to auscultation bilaterally Cardiovascular: Rate/Rhythm: regular rate and regular rhythm; not tachycardic Heart Sounds: normal S1, normal S2 and + murmur Extremities: no edema Gastrointestinal (Abdomen): Inspection/Auscultation: normal bowel sounds; abdomen not distended Percussion/Palpation: abdomen soft; abdomen nontender (Mildly tender lower quadrants) Musculoskeletal: No acute arthritis involving any joint Neurologic: normal touch/pain/proprioception and moves all extremities; no focal motor deficits Psychiatric: A+Ox3, euthymic affect Lymphatic: no cervical or axillary lymphadenopathy Results & Data Results & Data Vital Signs (Past 12 Hours) Vital Signs Temp Pulse Pulse Resp BP Pulse Ox O2 Del Method 12/08/22 11:13 36.6 C 84 20 114/66 96 Room Air 12/08/22 08:16 36.6 C 85 20 171/79 H 98 Room Air 12/08/22 07:00 70 12/08/22 01:05 104 H Medications Administered Current Inpatient Medications Acetaminophen (Acetaminophen 325 Mg Tab) 650 mg PO Q4H PRN PRN Reason: Pain or Fever Stop: 01/05/23 02:01 Amlodipine Besylate (Amlodipine Besylate 5 Mg Tab) 5 mg PO QAM [facility] Stop: 01/05/23 11:59 Last Admin: 12/08/22 11:18 Dose: 5 mg Aspirin (Aspirin 81 Mg Ectab) 81 mg PO QAM [facility] Stop: 01/05/23 08:59 Last Admin: 12/08/22 11:16 Dose: 81 mg Donepezil HCl (Donepezil Hcl 5 Mg Tab) 5 mg PO QDB [facility] Stop: 01/05/23 07:29 Last Admin: 12/08/22 11:16 Dose: 5 mg Heparin Sodium (Porcine) (Heparin Sod 5,000 Unit/0.5 Ml Vial) 5,000 units SQ Q12 [facility] Stop: 01/05/23 08:59 Last Admin: 12/08/22 11:17 Dose: Not Given Famotidine 20 mg/ Syringe 5 mls @ 2.5 mls/min IV Q24H [facility] Stop: 01/05/23 20:59 Last Admin: 12/07/22 21:34 Dose: Not Given Metronidazole (Flagyl) 500 mg in 100 mls @ 100 mls/hr IV Q8H [facility]; Protocol Stop: 12/16/22 02:29 Last Admin: 12/08/22 11:18 Dose: 100 mls/hr Ciprofloxacin (Cipro / D5w) 400 mg in 200 mls @ 100 mls/hr IV Q24H [facility]; Protocol Stop: 12/16/22 20:59 Last Admin: 12/07/22 21:32 Dose: Not Given Multivitamins/Minerals (Cerovite Adv Formula Tab) 1 tab PO QAM [facility] Stop: 01/05/23 08:59 Last Admin: 12/08/22 11:16 Dose: 1 tab Nitroglycerin (Nitroglycerin Sl 0.4 Mg/Tab Tab) 0.4 mg SL Q5M PRN PRN Reason: Chest Pain Stop: 01/05/23 02:01 Ondansetron HCl (Ondansetron Inj 2 Mg/Ml 2 Ml Vial) 4 mg IV Q6H PRN PRN Reason: Nausea Stop: 01/05/23 02:01 Rosuvastatin Calcium (Rosuvastatin Calcium 10 Mg Tab) 10 mg PO [facility] Stop: 01/05/23 08:59 Last Admin: 12/08/22 11:16 Dose: 10 mg
[2022-12-08] MEDS: CIPROFLOXACIN / D5W 400 MG/200 ML BAG IV SCH (21:46)
[2022-12-08] MEDS: FAMOTIDINE 20 MG in SYRINGE 3 ML IV SCH (21:47)
[2022-12-09] MEDS: metroNIDAZOLE 500 MG/100 ML BAG IV SCH ×2 (03:30→10:33)
[2022-12-09 07:39] LABS: Hematocrit (blood only) 32.7 % (37.0-47.0); Hemoglobin 11.3 g/dl (12.0-16.0); Mean Corpuscular Hgb Conc 34.6 g/dL (32.0-36.0); Mean Corpuscular Volume 86.7 fL (80.0-100.0); Mean Platelet Volume 9.2 fL (9.4-12.4); Platelet Count 166 K/uL (130-400); RDW Coefficient of Variation 14.2 % (11.5-14.5); RDW Standard Deviation 45.3 fL (36.4-46.3); Red Blood Count 3.77 M/uL (4.20-5.40); White Blood Count 8.08 K/ul (4.8-10.8)
[2022-12-09 08:06] LABS: Calcium 8.7 mg/dl (8.6-10.3); Creatinine Clr Calc Pharmacy 31.9 ml/min; Est GFR (African American) 75.1 ml/min; Est GFR (Non-African American) 64.8 ml/min; Potassium 3.6 mmol/L (3.5-5.1)
[2022-12-09 08:12] LABS: Basophils # (auto) 0.07 K/uL (0-0.2); Basophils % (auto) 0.9 %; Eosinophils # (auto) 0.26 K/uL (0-0.50); Eosinophils % (auto) 3.2 %; Immature Granulocytes # (auto) 0.03 K/uL (0.01-0.20); Immature Granulocytes % (auto) 0.4 %; Lymphocytes # (auto) 4.63 K/uL (1.2-3.4); Lymphocytes % (auto) 57.3 %; Monocytes # (auto) 0.54 K/uL (0.11-0.59); Monocytes % (auto) 6.7 %; Neutrophils # (auto) 2.55 K/uL (1.40-6.50); Neutrophils % (auto) 31.5 %; Ovalocytes 1+; Polychromasia 1+
[2022-12-09] MEDS ORDERED: PANTOprazole 40 MG TAB PO SCH (09:30)
[2022-12-09] MEDS ORDERED: ADVANCED PROBIOTIC 1250 MG CAPSULE PO SCH (09:30)
--- NOTE | 2022-12-09 09:53 | Gastroenterology Progress Note ---
Date of Service December 09, 2022 Assessment & Plan (1) Abnormal CT of the abdomen: (2) Nausea & vomiting: (3) Abdominal pain: (4) Diarrhea: Plan Pt is a 87 yo female w dementia, admitted w symptoms of n/v, diarrhea, poor appetite. CT abd/pelvis w signs of esophagus, gastric and descending colon thickening. Pt has never had EGD or colonoscopy before. She clinically improving since admitted. Family makes her medical decisions for her given her dementia and would like to defer any endoscopic procedures at this time. We will advance her to regular diet. Add Protonix 40mg daily. If she has any loose stools, check stool cx and Cdiff Pls recall GI prn. Admission and Anticipated Discharge Date Admission Date: December 05, 2022 Supervising Physician Co-Signing Physician Notes I have personally seen and examined the patient with MADELYN Oliveros. Her note reflects my exam and findings. I agree with her impression and plan. Patient improved with conservative management. Cont out patient PPI. Wolf Morton M.D. Subjective Pt up in bed, family (son, daughter, daughter in law) at bedside. Pt denies abd pain, n/v. Hasn't had BMs. Review of Systems Review of Systems: All systems reviewed & are unremarkable except as noted in HPI & below Physical Exam Constitutional: WD/WN, vitals as above well groomed, cooperative and comfortable Eyes: PERRL, conjunctivae normal, anicteric sclerae ENMT: external ear and nose normal, oropharynx normal Respiratory: normal respiratory effort, lungs clear to auscultation Cardiovascular: RRR, no murmur, no edema Gastrointestinal (Abdomen): normal bowel sounds, soft, nontender, no hepatosplenomegaly Skin: no rashes, warm and dry no jaundice Psychiatric: Orientation: alert, oriented to person, oriented to place and cooperative Lymphatic: no lymphedema Results & Data Vital Signs (Past 12 Hours) Vital Signs Temp Pulse Pulse Resp BP Pulse Ox O2 Del Method 12/09/22 08:00 Room Air 12/09/22 08:30 36.8 C 71 20 110/59 L 96 Room Air 12/09/22 07:10 57 L 12/09/22 03:43 37 C 62 16 99/64 L 95 Room Air 12/09/22 01:30 73 12/08/22 23:11 37 C 89 16 102/65 96 Room Air
[2022-12-09] MEDS: CEROVITE ADV FORMULA TAB PO SCH (10:33)
[2022-12-09] MEDS: HEPARIN SOD 5,000 UNIT/0.5 ML VIAL SQ SCH (10:34)
[2022-12-09] MEDS: amLODIPine BESYLATE 5 MG TAB PO SCH (10:34)
[2022-12-09] MEDS: ROSUVASTATIN CALCIUM 10 MG TAB PO SCH (10:34)
[2022-12-09] MEDS: ASPIRIN 81 MG ECTAB PO SCH (10:35)
[2022-12-09] MEDS: DONEPEZIL HCL 5 MG TAB PO SCH (10:35)
--- NOTE | 2022-12-09 13:43 | Hospitalist Progress Note ---
Date of Service December 09, 2022 Assessment & Plan (1) Nausea & vomiting: Plan: 87-year-old female with past medical history significant for prediabetes, hyperlipidemia, hypertension, vitamin D deficiency, osteoporosis, benign paroxysmal vertigo, chronic midline low back pain, memory loss, who lives at home alone ambulates without support able to eat regular food and daughter lives close by was brought in by daughter because of ongoing nausea vomiting and weakness. Nausea an vomiting ongoing for some time now Diarrhea today Mild abdominal discomfort CT scan showing mild colitis and also gastritis and esophagitis-CT scan of the abdomen pelvis on 13 of this month showed mild colitis as well Stool cultures ordered-results pending IV Pepcid twice daily Empiric IV cipro and flagyl for now Appreciate GI input and recommendation-we will have outpatient EGD and colonoscopy She has been feeling much better We will continue with IV antibiotic for today and likely discharge tomorrow on oral antibiotic to finish the course of 14 days in total Discussed with daughter in detail even though the patient is getting better day by day she wants to have EGD and colonoscopy done while she is in the hospital GI is aware and the patient is tolerating usual food without any symptoms No more abdominal symptoms-we will keep her n.p.o. for possible EGD tomorrow Likely to go for EGD and colonoscopy while she is in the hospital Clinically much better and she is having less confusion today Appreciate GI evaluation and plan for outpatient EGD and colonoscopy down the line Patient remains free from any symptoms and has had speech evaluation and recommendation prior to discharge Will give antibiotic for a total of 7 days Acute confusion Noted to be last night and as well as early this morning Daughter says that confusion is worse Reassured that it could be secondary to hospital delirium and the infection has been contributing We will observe and go from there She will have an outpatient appointment with the neurologist for evaluation of dementia Increasing confusion last night but resolved this morning CT scan of the head without contrast did show microvascular changes as before but no acute stroke and or bleeding Confusion is much better and she will be discharged home this afternoon Hyponatremia Mostly from poor p.o. intake Has been getting normal saline with potassium intravenously Sodium is 132 today we will monitor Urine sodium level is low and osmolarity is pending Sodium level is normal at 137 and potassium is minimally low at 3.2 which was supplemented Sodium level is 137 today Prediabetes We will follow HbA1c levels-we will check it tomorrow-6.5 Hypertension We will hold the triamterene hydrochlorothiazide because of hyponatremia and poor oral intake IV hydralazine as needed for now Blood pressure remains elevated We will add amlodipine 5 mg daily Blood pressure is controlled Hyperlipidemia On statin Mild Hypercalcemia possibly from dehydration held calcium supplements will follow vitamin d levels.-Elevated and will stop vitamin D supplement DVT prophylaxis heparin subcu Disposition med/telemetry Full code No endoscopy is planned and she will be discharged home this afternoon (2) Hyponatremia: Admission and Anticipated Discharge Date Admission Date: December 05, 2022 Subjective 12/06/2022 The patient was seen and examined in medical telemetry unit She was admitted with nausea vomiting and abdominal discomfort which has been going on for the last few days She has loss of appetite but does not have any fever and or chills and denies any problem with urination or bowel habit Has been feeling much better since admission 12/07/2022 The patient was seen and examined in medical telemetry unit She has been feeling much better and wants to go home Noted to be confused last night and also this morning with nurse daughter came up to see her Denies any fever and or chills, any abdominal pain nausea or vomiting 12/08/2022 The patient was seen and examined in medical telemetry unit in presence of the daughter She required 1 dose of IM Zyprexa last night because of increasing confusion and agitation Has been fine this morning and denies any symptoms 12/09/2022 The patient was seen and examined in medical telemetry unit in presence of the family members She has been much better this morning without any delirium The family members did discuss with the GI PA and decided not to have any scope at this time She will be discharged home this afternoon following speech evaluation Review of Systems Review of Systems: All systems reviewed and are unremarkable except as noted below Physical Exam Physical Exam: Lying in bed comfortably Constitutional: + ill appearing and average body habitus Eyes: PERRL, conjunctivae normal, anicteric sclerae ENMT: external ear and nose normal, oropharynx normal Neck: trachea midline, no thyromegaly Respiratory: no respiratory distress Auscultation: lungs clear to aus cultation bilaterally Cardiovascular: Rate/Rhythm: regular rate and regular rhythm; not tachycardic Heart Sounds: normal S1, normal S2 and + murmur Extremities: no edema Gastrointestinal (Abdomen): Inspection/Auscultation: normal bowel sounds; abdomen not distended Percussion/Palpation: abdomen soft; abdomen nontender (Mildly tender lower quadrants) Neurologic: normal touch/pain/proprioception and moves all extremities; no focal motor deficits Psychiatric: A+Ox3, euthymic affect Lymphatic: no cervical or axillary lymphadenopathy Results & Data Results & Data Vital Signs (Past 12 Hours) Vital Signs Temp Pulse Pulse Pulse Resp BP BP 12/09/22 11:42 36.8 C 85 20 135/76 12/09/22 10:17 36.8 C 72 71 20 115/76 110/59 L 12/09/22 08:00 12/09/22 08:30 36.8 C 71 20 110/59 L 12/09/22 07:10 57 L 12/09/22 03:43 37 C 62 16 99/64 L Pulse Ox O2 Del Method 12/09/22 11:42 98 Room Air 12/09/22 10:17 96 12/09/22 08:00 Room Air 12/09/22 08:30 96 Room Air 12/09/22 07:10 12/09/22 03:43 95 Room Air Laboratory Results Short CBC 12/09/22 Range/Units 06:43 WBC 8.08 (4.8-10.8) K/ul Hgb 11.3 L (12.0-16.0) g/dl Hct 32.7 L (37.0-47.0) % Plt Count 166 (130-400) K/uL BMP 12/09/22 06:43 Sodium 137 Potassium 3.6 Chloride 103 Carbon Dioxide 29 BUN 9 Creatinine 0.82 Glucose 95 Calcium 8.7 Medications Administered Current Inpatient Medications Acetaminophen (Acetaminophen 325 Mg Tab) 650 mg PO Q4H PRN PRN Reason: Pain or Fever Stop: 01/05/23 02:01 Amlodipine Besylate ([facility]ylate 5 Mg [facility]) [facility] [place] 01/05/23 11:59 Last Admin: 12/09/22 10:34 Dose: 5 mg Aspirin (Aspirin 81 Mg Ectab) 81 mg PO QAM [facility] Stop: 01/05/23 08:59 Last Admin: 12/09/22 10:35 Dose: 81 mg Donepezil HCl (Donepezil Hcl 5 Mg Tab) 5 mg PO QDB [facility] Stop: 01/05/23 07:29 Last Admin: 12/09/22 10:35 Dose: 5 mg Heparin Sodium (Porcine) (Heparin Sod 5,000 Unit/0.5 Ml Vial) 5,000 units SQ Q12 [facility] Stop: 01/05/23 08:59 Last Admin: 12/09/22 10:34 Dose: 5,000 units Metronidazole (Flagyl) 500 mg in 100 mls @ 100 mls/hr IV Q8H [facility]; Protocol Stop: 12/16/22 02:29 Last Infusion: 12/09/22 11:33 Dose: Infused Ciprofloxacin (Cipro / D5w) 400 mg in 200 mls @ 100 mls/hr IV Q24H [facility]; Protocol Stop: 12/16/22 20:59 Last Infusion: 12/08/22 23:49 Dose: Infused Lactobacillus Acidophilus (Advanced Probiotic 1250 Mg Capsule) 2 cap PO DAILY [facility] Stop: 01/08/23 09:29 Last Admin: 12/09/22 10:34 Dose: 2 cap Multivitamins/Minerals (Cerovite Adv Formula Tab) [facility]: 01/05/23 08:59 Last Admin: 12/09/22 10:33 Dose: 1 tab Nitroglycerin (Nitroglycerin Sl 0.4 Mg/Tab Tab) 0.4 mg SL Q5M PRN PRN Reason: Chest Pain Stop: 01/05/23 02:01 Ondansetron HCl (Ondansetron Inj 2 Mg/Ml 2 Ml Vial) 4 mg IV Q6H PRN PRN Reason: Nausea Stop: 01/05/23 02:01 Pantoprazole Sodium (Pantoprazole 40 Mg Tab) [facility] [place]: 01/08/23 09:29 Last Admin: 12/09/22 10:34 Dose: 40 mg Rosuvastatin Calcium (Rosuvastatin Calcium 10 Mg Tab) 10 mg PO QAM [facility] Stop: 01/05/23 08:59 Last Admin: 12/09/22 10:34 Dose: 10 mg
--- NOTE | 2022-12-09 18:25 | Discharge Summary ---
Date of Service December 09, 2022 Admission HPI Per Admitting Provider 87-year-old female with past medical history significant for prediabetes, hyperlipidemia, hypertension, vitamin D deficiency, osteoporosis, benign paroxysmal vertigo, chronic midline low back pain, memory loss, who lives at home alone ambulates without support able to eat regular food and daughter lives close by was brought in by daughter because of ongoing nausea vomiting and weakness. Daughter states end of October she had stomach bug and had about 1 and half weeks of nausea vomiting and poor appetite and weakness and abdominal discomfort. Then her symptoms improved. But last Friday again she had nausea vomiting and not feeling well and she was in the ER, labs seemed okay except for mild hyponatremia. At that time CT scan was done which showed mild colitis possible infectious versus inflammatory. She improved with IV fluids and was discharged home. Daughter says she did fine for few days but again last 2 days again developed severe nausea and vomiting and vomited all the food she ate in last 2 days. Mild abdominal discomfort. She also had a explosive diarrhea today. Denies any blood in the vomitus or blood in the stools. No fevers. Hemodynamically stable. Denies any chest pain or shortness of breath. No headaches. Mild dizziness. No blurred visions or earache or runny nose or sore throat. No dysphagia or odynophagia. Normal bladder movements. No back pain. No neck pain. Currently ambulation not that great because of weakness. Past medical history as mentioned above Past surgical history appendectomy with hysterectomy, freeing of bowel ideations, tonsillectomy and adenoidectomy. Social history no smoking. Currently lives alone. Daughter lives close by Family history no family history on file Admission Exam Per Admitting Provider Physical Exam: General- not in distress Head- atraumatic Eyes- PERRL. ENT- oropharynx clear Neck- supple, no JVD, Lungs- clear to auscultation no wheezing or crackles. Heart- regular rhythm; no murmur, no gallop. Abdomen- normal bowel sounds, soft, nontender, no distension Extremities- no pretibial edema, no erythema seen. Neuro- alert, oriented x 3; PERRL, no facial palsy; no dysarthria; obeys commands, moves extremities. Skin- warm & dry Principal Diagnosis Nausea vomiting. Nonspecific esophagitis and colitis, delirium with history of dementia Discharge Exam Lying in bed comfortably Constitutional + ill appearing and average body habitus Eyes PERRL, conjunctivae normal, anicteric sclerae ENMT external ear and nose normal, oropharynx normal Neck trachea midline, no thyromegaly Respiratory no respiratory distress Auscultation: lungs clear to auscultation bilaterally Cardiovascular Rate/Rhythm: regular rate and regular rhythm; not tachycardic Heart Sounds: normal S1, normal S2 and + murmur Extremities: no edema Gastrointestinal (Abdomen) Inspection/Auscultation: normal bowel sounds; abdomen not distended Percussion/Palpation: abdomen soft; abdomen nontender (Mildly tender lower quadrants) Neurologic normal touch/pain/proprioception and moves all extremities; no focal motor deficits Psychiatric A+Ox3, euthymic affect Lymphatic no cervical or axillary lymphadenopathy Discharge Data Allergies Allergy/AdvReac Type Severity Reaction Status Date / Time Penicillins Allergy Unknown Verified 12/05/22 22:29 Consultations 12/06/22 08:00 Consult Gastroenterology Routine Ordered Studies 12/05/22 20:39 CT Abd and Pelvis [CT abd pelvis IV con only] Stat 12/08/22 10:55 CT head/brain wo con Routine Hospital Course (1) Nausea & vomitin-year-old female with past medical history significant for prediabetes, hyperlipidemia, hypertension, vitamin D deficiency, osteoporosis, benign paroxysmal vertigo, chronic midline low back pain, memory loss, who lives at home alone ambulates without support able to eat regular food and daughter lives close by was brought in by daughter because of ongoing nausea vomiting and weakness. Nausea an vomiting ongoing for some time now Diarrhea today Mild abdominal discomfort CT scan showing mild colitis and also gastritis and esophagitis-CT scan of the abdomen pelvis on 13 of this month showed mild colitis as well Stool cultures ordered-results pending IV Pepcid twice daily Empiric IV cipro and flagyl for now Appreciate GI input and recommendation-we will have outpatient EGD and colonoscopy She has been feeling much better We will continue with IV antibiotic for today and likely discharge tomorrow on oral antibiotic to finish the course of 14 days in total Discussed with daughter in detail even though the patient is getting better day by day she wants to have EGD and colonoscopy done while she is in the hospital GI is aware and the patient is tolerating usual food without any symptoms No more abdominal symptoms-we will keep her n.p.o. for possible EGD tomorrow Likely to go for EGD and colonoscopy while she is in the hospital Clinically much better and she is having less confusion today Appreciate GI evaluation and plan for outpatient EGD and colonoscopy down the line Patient remains free from any symptoms and has had speech evaluation and recommendation prior to discharge Will give antibiotic for a total of 7 days Acute confusion Noted to be last night and as well as early this morning Daughter says that confusion is worse Reassured that it could be secondary to hospital delirium and the infection has been contributing We will observe and go from there She will have an outpatient appointment with the neurologist for evaluation of dementia Increasing confusion last night but resolved this morning CT scan of the head without contrast did show microvascular changes as before but no acute stroke and or bleeding Confusion is much better and she will be discharged home this afternoon Hyponatremia Mostly from poor p.o. intake Has been getting normal saline with potassium intravenously Sodium is 132 today we will monitor Urine sodium level is low and osmolarity is pending Sodium level is normal at 137 and potassium is minimally low at 3.2 which was supplemented Sodium level is 137 today Prediabetes We will follow HbA1c levels-we will check it tomorrow-6.5 Hypertension We will hold the triamterene hydrochlorothiazide because of hyponatremia and poor oral intake IV hydralazine as needed for now Blood pressure remains elevated We will add amlodipine 5 mg daily Blood pressure is controlled Hyperlipidemia On statin Mild Hypercalcemia possibly from dehydration held calcium supplements will follow vitamin d levels.-Elevated and will stop vitamin D supplement DVT prophylaxis heparin subcu Disposition med/telemetry Full code No endoscopy is planned and she will be discharged home this afternoon (2) Hyponatremia: Total Time Total Time Spent Total Time Spent (In Minutes): 35 minutes Discharge Plan Discharge Items Patient Disposition: Home - Self-Care Reason For Visit: WEAKNESS, HYPONATREMIA Discharge Diagnosis: Nausea vomiting. Nonspecific esophagitis and colitis, delirium with history of dementia Condition on Discharge: Good Activity: Resume your previous activity Non-emergency contact: Primary Care Provider Call non-emergency contact if: you have any medication questions and your symptoms worsen Follow-up/Referrals: Tristan Schwab MD [Physician] - (The GI office will contact you with an appointment for testing.) Maximino Andrade DO [Primary Care Provider] - (Date & Time 12/12/2022 1:00 PM Provider Maximino Andrade DO Department Family [facility] Diet: Regular Diet Texture: Easy to Chew Diet Comment: Alternate solids and liquids. Fully alert and upright. Aspiration precauti Addtl Attending Provider Instructions: Please take precautions to avoid falls Finish the course of antibiotic Take aspiration precautions as advised by the speech therapist Please give appointment with your healthcare providers You will need to have an appointment with neurologist to evaluate your status of dementia Pending Studies at Discharge: No Stand-Alone Forms: My [facility], Smoking Cessation Medications and DC Order Prescriptions: New pantoprazole 40 mg Tablet,Delayed Release (Dr/Ec) 40 mg PO QAM Qty: 30 0RF Advanced Probiotic 625 mg (10 billion cell) Capsule 2 cap PO DAILY Qty: 30 0RF ciprofloxacin HCl [Cipro] 250 mg tablet 250 mg PO BID Qty: 7 0RF metronidazole 500 mg tablet 500 mg PO BID Qty: 7 0RF Continued donepezil 5 mg tablet 5 mg PO QDB triamterene-hydrochlorothiazid 37.5-25 mg capsule 1 cap PO QAM rosuvastatin 10 mg tablet 10 mg PO QAM aspirin 81 mg Tablet,Delayed Release (Dr/Ec) 81 mg PO QAM cholecalciferol (vitamin D3) [Vitamin D3] 50 mcg (2,000 unit) Tablet 50 mcg PO QAM [id number] carb-[id number] 400 mcg-500 mg calcium-20 mcg Tablet 1 tab PO QAM calcium carbonate-vitamin D3 [Caltrate with Vitamin D3] 600 mg-20 mcg (800 unit) Tablet 1 tab PO QAM Discontinued alendronate 70 mg tablet 70 mg PO WK Rx Instructions: friday Discharge Orders: Discharge Order (Routine); Ordered 12/09/22 Ordered By: Vibha Patino/Other Patient Handouts: A1C, Hyponatremia Dc Admission Data Admit Date/Time: 12/05/22 22:41 Attending Provider: Vibha Villela Admit Provider: Yon Lemos Primary Care Provider: Maximino Andrade Other Providers: Cash Ingram ; Abraham Dahl ; Keyana Bonilla ; Lillian Conteh ; Camryn Marie ; Marichuy Fong ; Po Alvarez ; James Brown ; Porsche Rodas ; Joy Dye ; Wolf Morton ; Angela Fuentes ; Gi Mccartney ; Venus Doty ; Kenzie Morgan ; Tristan Schwab ; Khurram Devries ; Luis Khan ; Natali Davis ; Ed Oquendo Jr Other Interventions: Discharge Summary Assessment (RN) Last Done: 12/09/22 15:27
== END 2022-12-09 15:34 | disposition home or self-care (01) | DRG 392 ==
LOC: ED 19:30 → EDINP 22:41 → 2N 12-06 02:03